=== PATIENT | male | born 1940 | race Caucasian/White ===

== ENCOUNTER 2019-04-13 13:43 | Observation (INO) | payer MEDICARE ==
[~2019-04-13] VITALS: Ht 172.7 cm; Wt 73.6 kg
--- NOTE | 2019-04-13 13:48 | NUR ---
NO ANSWER FROM TRIAGE, NOT FOUND IN LOBBY, HALLWAY, OR KID AREA OF WAITING ROOM.
--- NOTE | 2019-04-13 14:28 | NUR ---
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
[2019-04-13 14:36] LABS: BASOPHILS # (AUTO) 0.05 x10^3/uL (0-0.1); BASOPHILS % (AUTO) 1 % (0-1); EOSINOPHILS # (AUTO) 0.16 x10^3/uL (0-0.4); EOSINOPHILS % (AUTO) 3 % (1-7); LYMPHOCYTES # (AUTO) 1.37 x10^3/uL (1-3.4); LYMPHOCYTES % (AUTO) 24 % (22-44); MD NO; MEAN CORPUSCULAR HEMOGLOBIN 30.4 pg (27.5-34.5); MEAN CORPUSCULAR HGB CONC 32.9 g/dL (33.2-36.2); MEAN CORPUSCULAR VOLUME 92.5 fL (81-97); MEAN PLATELET VOLUME 7.4 fL (7.4-10.4); MONOCYTES # (AUTO) 0.48 x10^3/uL (0.2-0.8); MONOCYTES % (AUTO) 8 % (2-9); NEUTROPHILS # (AUTO) 3.61 x10^3/uL (1.8-6.8); NEUTROPHILS % (AUTO) 64 % (42-75); PLATELET COUNT 214 x10^3/uL (130-400); RED BLOOD COUNT 4.68 x10^6/uL (4.38-5.82); RED CELL DISTRIBUTION WIDTH 14.2 % (9.4-14.8)
[2019-04-13 14:45] LABS: ALBUMIN 3.9 g/dL (3.4-5.0); ANION GAP 6 mmol/L (5-15); CALCIUM 8.8 mg/dL (8.5-10.1); CHLORIDE 108 mmol/L (98-107); CREATININE 1.16 mg/dL (0.7-1.3)
--- NOTE | 2019-04-13 14:48 | NUR ---
PT HERE WITH C/O CHEST PAIN, STATES IT DOES NOT RADIATE BUT ALSTED ABOUT 30 MINUTES AGO. PT STATES SQUEEZING AND HAS HAD AN OK BEFORE. PT AAO X 4, NAD, ROOM AIR, CALL LIGHT WITHIN REACH AND ATTACHED TO MONITOR AND IN GOWN. PT ANXIOUS BUT STATES HX OF ANXIETY.
[2019-04-13 14:49] LABS: TROPONIN I < 0.015 ng/mL (0.000-0.045)
[2019-04-13] MEDS ORDERED: ASPIRIN 81 MG TABLET CHEW PO ONE (15:00)
[2019-04-13] MEDS ORDERED: SODIUM CHLORIDE FLUSH 10ML SYR IVF ONE (15:00)
[2019-04-13] MEDS ORDERED: ASPIRIN 81 MG TABLET CHEW ONE (15:01)
--- NOTE | 2019-04-13 15:50 | NUR ---
PT MEDICATED, PIV ESTABLISHED, AND HOSPITALIST MD AT BEDSIDE.
[2019-04-13] MEDS ORDERED: MAALOX/HYOSCYAMINE/LIDOCAINE 45 ML BTL PO PRN (16:00)
[2019-04-13] MEDS ORDERED: morphine SULFATE 10 MG/ML, 1ML IV PRN (16:00)
[2019-04-13] MEDS ORDERED: ACETAMINOPHEN 325 MG TABLET PO PRN (16:00)
[2019-04-13] MEDS ORDERED: morphine SULFATE 10 MG/ML, 1ML IVPush PRN (16:00)
[2019-04-13] MEDS ORDERED: PANTOPRAZOLE 20MG TABLET PO SCH (16:00)
--- NOTE | 2019-04-13 16:45 | NUR ---
PT RESTING ON GURALEXIS, NAD, ROOM AIR, CALL LIGHT WITHIN REACH.
--- NOTE | 2019-04-13 16:59 | NUR ---
PT AMBULATORY TO RESTROOM WITH STEADY GAIT. MED REC COMPLETED.
[2019-04-13] MEDS ORDERED: TADA5TAB2 PO (17:02)
[2019-04-13] MEDS ORDERED: ROSU10TA2 PO (17:02)
[2019-04-13] MEDS ORDERED: ASPI-496 PO (17:02)
[2019-04-13] MEDS ORDERED: LANS15CA5 PO (17:02)
--- NOTE | 2019-04-13 17:47 | NUR ---
REPORT GIVEN TO SARAH ZARATE. PT TO TRANSFER WITH ALL BELONGINGS TO INPATIENT STATUS.
[2019-04-13] MEDS ORDERED: PANTOPROZOLE 40MG TABLET ONE (18:14)
[2019-04-13 18:19] VITALS: BP 112/65
[2019-04-13 18:49] VITALS: BP 145/83
[2019-04-13] MEDS ORDERED: PANTOPROZOLE 40MG TABLET PO SCH (19:11)
[2019-04-13] MEDS ORDERED: TEMAZEPAM 15 MG CAPSULE PO PRN (19:30)
[2019-04-13 20:10] LABS: TROPONIN I < 0.015 ng/mL (0.000-0.045)
[2019-04-13] MEDS ORDERED: SODIUM CHLORIDE FLUSH 10ML SYR IVF SCH (21:00)
[2019-04-13] MEDS ORDERED: ATORVASTATIN 40 MG TABLET PO SCH (21:00)
[2019-04-14 01:30] VITALS: BP 111/69
[2019-04-14 02:54] LABS: TROPONIN I < 0.015 ng/mL (0.000-0.045)
[2019-04-14 02:58] LABS: CHOL/HDL RATIO 2.8; LDL/HDL RATIO 1.4 (0.5-3.0)
[2019-04-14] MEDS ORDERED: ASPIRIN 325 MG TABLET EC PO SCH (06:00)
[2019-04-14 06:50] VITALS: BP 108/69
== END 2019-04-14 07:39 | disposition left against medical advice (07) ==
LOC: ED 15:49 → EDIP 15:50 → ED 15:54 → 5SO 18:10
PROVIDERS: ADMIT Hospitalist; ATTEND Family Medicine
DX: R07.9 Chest pain, unspecified (principal); K21.9 Gastro-esophageal reflux disease without esophagitis; N52.9 Male erectile dysfunction, unspecified; E78.5 Hyperlipidemia, unspecified; I25.110 Atherosclerotic heart disease of native coronary artery with unstable angina pectoris; I10 Essential (primary) hypertension; I25.2 Old myocardial infarction; Z98.61 Coronary angioplasty status
CPT/HCPCS: 36415; 71045; 80048; 80061; 82040; 84484; 85025; 85379; 93005; 99284; G0378

== ENCOUNTER → 2019-05-14 | Outpatient (CLI) | payer MEDICARE ==
[~2019-05-14] MED LIST: ASPI-496 PO; LANS15CA5 PO; ROSU10TA2 PO; TADA5TAB2 PO
== END | disposition home or self-care (01) ==
LOC: CFH 07:09
PROVIDERS: ATTEND Internal Medicine Cardiovascular Disease
DX: I21.19 ST elevation (STEMI) myocardial infarction involving other coronary artery of inferior wall (principal); I25.10 Atherosclerotic heart disease of native coronary artery without angina pectoris
CPT/HCPCS: 78452; 93017; A9502